=== PATIENT | female | born 2000 ===

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

== ENCOUNTER 2019-01-15 00:35 | Emergency (ER) | payer MEDICAID, SELFPAY ==
[2019-01-15 00:37] VITALS: BP 119/82; PULSE 98; RESP 18; TEMP 37.5; O2SAT 99
--- NOTE | 2019-01-15 00:51 | ED.GENADUL_ITS ---
Discharge Plan Disposition Patient Disposition: HOME Condition: Improving Discharge Details Chief Complaint: RespSymp Clinical Impression: Acute bronchitis Primary Care Provider: None,None ED Provider: Avery Rice Home Meds and New Rx's Prescriptions: New azithromycin 250 mg tablet See Rx Instructions .ROUTE .COMPLEX Qty: 6 RF: 0 benzonatate [Tessalon Perles] 100 mg capsule 100 mg PO TID PRN (Reason: cough) Qty: 10 RF: 0 Discharge Instructions Instructions: Acute Bronchitis (ED) Additional Instructions: As we discussed, fill the azithromycin tomorrow if you have persistent cough and/or fever. Tessalon as needed for cough. Return to the emergency room for any acute concerns Medical Decision Making 18-year-old female with day 2 of an upper respiratory illness with persistent cough and production of brown tinged sputum. She has normal vital signs, is well-appearing, was concerned due to one particular paroxysms of cough at home has been associated posttussive emesis. Screening influenza obtained and negative. She may be developing an acute bacterial bronchitis. I will offer her a Z-Darian to be filled if she worsens over the next 24 hours. Will offer increased antitussive regimen for home. She stable for discharge at this time. HPI General Mode of arrival: ambulatory . Date/Time Provider Initiated Documentation: 01/15/19 00:45 . Limitations to Documentation: no limitations . Information obtained by: patient . History of Present Illness 18 year old F presents to the emergency department with the chief complaint of Cough and production of sputum, described as moderate, Quality is described as dull, and is localized to the chest. Patient reports no radiation. Patient started experiencing this day(s) and it has been intermittent. No relieving factors improve symptom(s), No exacerbating factors reported . Patient notes cough, fever/chills and nausea/vomiting. Patient did receive the following treatments prior to arrival, none Related Data Home Medications Medication Instructions Recorded Confirmed azithromycin See Rx Instructions .ROUTE 01/15/19 .COMPLEX #6 tab benzonatate [Tessalon Perles] 100 mg PO TID PRN #10 cap 01/15/19 Previous Rx's Medication Instructions Recorded azithromycin See Rx Instructions .ROUTE 01/15/19 .COMPLEX #6 tab benzonatate [Tessalon Perles] 100 mg PO TID PRN #10 cap 01/15/19 Allergies Allergy/AdvReac Type Severity Reaction Status Date / Time Penicillins Allergy Unknown Unverified 01/15/19 00:41 General Stated Complaint: RespSymp JOSE MIGUEL: 4 Review of Systems Review of Systems Posttussive emesis. No recent travel. 8 systems reviewed and otherwise neg [facility] Medical History Femur fracture, right (Resolved) Tibia/fibula fracture (Resolved) Social History Smoking/Tobacco Use Status: Never Alcohol Intake: never Substance use type: does not use Exam Narrative Exam Narrative: GEN: awake, alert, oriented 3. Pleasant, well groomed, interactive. HEAD: Normocephalic, atraumatic ENT: Mucous membranes moist, oropharynx unremarkable, External ear exam unremarkable EYES: PERRL, EOMI NECK: Full ROM, no ALEXANDRA, no menigismus CHEST/RESP: Nontender, clear to auscultation bilateral, no wheeze/rhonchi/rales. Cough noted CARDIOVASCULAR: RRR, no murmur, rub hu. 2+ Rad pulse bilateral ABDOMEN: Soft, nontender, no mass. +Bowel sounds EXT: Full ROM, no edema, no rash Neuro: Grossly normal neurologic exam, conversant, interactive. Psych: Speech fluent, thoughts congruent, affect normal Course Vital Signs Temperature 37.5 C 01/15/19 00:37 Pulse 98 H 01/15/19 00:37 Respiratory Rate 18 01/15/19 00:37 Blood Pressure 119/82 01/15/19 00:37 Pulse Oximetry 99 01/15/19 00:37 Temperature 37.5 C 01/15/19 00:37 Temperature Source Oral 01/15/19 00:37 Pulse 98 H 01/15/19 00:37 Respiratory Rate 18 01/15/19 00:37 Respiratory Effort 01/15/19 00:42 Respiratory Depth Normal 01/15/19 00:42 Blood Pressure 119/82 01/15/19 00:37 Blood Pressure Position Sitting 01/15/19 00:37 Pulse Oximetry 99 01/15/19 00:37 Oxygen Delivery Method Room Air 01/15/19 00:37 Oxygen Flow Rate 0 01/15/19 00:37 Pain Level 8 01/15/19 00:37 Lab/Test Results Lab/Test Results: 01/15/19 00:42 Nasopharynx Influenza Types A,B Antigen - Pending
== END 2019-01-15 01:15 | disposition home or self-care (01) ==
PROVIDERS: Emergency Provider Emergency Medicine
DX: J20.9 Acute bronchitis, unspecified (principal)
CPT/HCPCS: 87449; 99283